=== PATIENT | female | born 1980 | race Caucasian/White ===

== ENCOUNTER 2017-02-25 14:57 | Emergency (ER) | payer SELFPAY ==
[~2017-02-25] VITALS: Ht 152.4 cm; Wt 95.3 kg
[2017-02-25 15:53] LABS: BASOPHILS % 0.3 % (0.0-1.0); EOSINOPHILS % 0.2 % (0.0-6.0); HEMATOCRIT 45.6 % (34.2-44.1); HEMOGLOBIN 15.3 g/dL (12.0-16.0); LYMPHOCYTES # (AUTO) 1.8 (1.0-3.2); LYMPHOCYTES % 26.4 % (18.0-39.1); MEAN CORPUSCULAR HEMOGLOBIN 30.1 pg (28-32); MEAN CORPUSCULAR HGB CONC 33.6 g/dL (31-35); MEAN CORPUSCULAR VOLUME 89.6 fL (81-99); MONOCYTES # (AUTO) 0.3 (0.2-0.8); MONOCYTES % 4.4 % (4.4-11.3); NEUTROPHILS # (AUTO) 4.6 (2.1-6.9); NEUTROPHILS % 68.2 % (38.7-80.0); PLATELET COUNT 218 x10e3/uL (140-360); RED BLOOD COUNT 5.09 x10e6/uL (3.6-5.1)
[2017-02-25] MEDS: MORPHINE SULFATE 5 MG/ML VIAL IV ONE ×2 (16:03→17:37)
[2017-02-25] MEDS: ONDANSETRON HCL INJ 2 MG/ML VIAL IV STA (16:03)
[2017-02-25] MEDS ORDERED: MORPHINE SULFATE 5 MG/ML VIAL ONE (16:07)
[2017-02-25 16:13] LABS: ALANINE AMINOTRANSFERASE 14 IU/L (0-55); ALBUMIN 4.4 g/dL (3.5-5.0); ALKALINE PHOSPHATASE 65 IU/L (40-150); BLOOD UREA NITROGEN 9 mg/dL (7-26); BUN/CREATININE RATIO 11 (6-25); CARBON DIOXIDE 21 mmol/L (22-29); CHLORIDE 104 mmol/L (98-107); CREATININE, SERUM 0.84 mg/dL (0.57-1.11); EST GLOMERULAR FILTRATION RATE > 60 ML/MIN (60-); GLUCOSE 113 mg/dL (74-118); LIPASE 15 U/L (8-78); SODIUM 139 mmol/L (136-145)
[2017-02-25] MEDS: SODIUM CHLORIDE 0.9% 1000ML 1,000 ML IV STA (16:14)
[2017-02-25] MEDS: MORPHINE SULFATE 4 MG/ML SYR IV STA (16:15)
[2017-02-25 16:16] LABS: INFLUENZAE A&B ANTIGEN (RAPID) NEGATIVE (NEGATIVE)
[2017-02-25 16:36] LABS: STREPTOCOCCUS GRP A ANTIGEN NEGATIVE (NEGATIVE)
[2017-02-25 17:24] LABS: BILIRUBIN,URINE NEGATIVE (NEGATIVE); KETONES,URINE 3+ (NEGATIVE); LEUKOCYTE ESTERASE ,URINE TRACE (NEGATIVE); NITRITE,URINE NEGATIVE (NEGATIVE); URINE UROBILINOGEN 0.2 mg/dL (0.2 - 1)
[2017-02-25 17:25] LABS: CLARITY,URINE HAZY (CLEAR); COLOR,URINE YELLOW (YELLOW); PROTEIN,URINE DIPSTICK TRACE (NEGATIVE)
[2017-02-25 17:34] LABS: BACTERIA,URINE MODERATE /HPF; EPITHELIAL CELLS,URINE MODERATE /LPF; RBC,URINE 21-50 /HPF (0-5)
[2017-02-25] MEDS: ONDANSETRON HCL INJ 2 MG/ML VIAL IV ONE (17:37)
[2017-02-25] MEDS ORDERED: ONDANSETRON HCL INJ 2 MG/ML VIAL ONE (17:40)
--- NOTE | 2017-02-25 17:44 | Diagnostic Imaging Report ---
EXAM: CT Abdomen and Pelvis WITHOUT contrast INDICATION: \S\STONE PROTOCOL \[id number] \S\1650 \S\Y COMPARISON: None. TECHNIQUE: Abdomen and pelvis were scanned utilizing a multidetector helical scanner from the lung base to the pubic symphysis without administration of IV contrast. Absence of intravenous contrast decreases sensitivity for detection of focal lesions and vascular pathology. Coronal and sagittal reformations were obtained. Routine protocol was performed. IV CONTRAST: None ORAL CONTRAST: Water COMPLICATIONS: None RADIATION DOSE: Total DLP: 815.67 mGy*cm Estimated effective dose: (DLP x 0.015 x size factor) mSv CTDIvol has been reviewed. It is below the limits set by the Radiation Protocol Committee (RPC). FINDINGS: LINES and TUBES: None. LOWER THORAX: Unremarkable HEPATOBILIARY: Unenhanced liver is unremarkable. No biliary ductal dilation. GALLBLADDER: No radio-opaque stones or sludge. No wall thickening. SPLEEN: No splenomegaly. PANCREAS: No focal masses or ductal dilatation. ADRENALS: No adrenal nodules KIDNEYS/URETERS: No hydronephrosis. No cystic or solid mass lesions. No stones. GI TRACT: No abnormal distention, wall thickening, or evidence of bowel obstruction. Appendix is normal. PELVIC ORGANS/BLADDER: Unremarkable. LYMPH NODES: No lymphadenopathy. VESSELS: Unremarkable. PERITONEUM / RETROPERITONEUM: No free air or fluid. BONES: Unremarkable. L5 vertebral body hemangioma. Straightening of lumbar spine lordosis. SOFT TISSUES: Unremarkable. IMPRESSION: No nephrolithiasis or evidence of obstructive urolithiasis. Signed by: Dr. Ramesh Maciel MD on 02/25/2017 5:41 PM
[2017-02-25] MEDS ORDERED: CEFTRIAXONE SOD 1 GM VIAL ONE (17:56)
[2017-02-25] MEDS: CEFTRIAXONE SOD 1 GM VIAL IV ONE (17:56)
== END 2017-02-25 18:39 | disposition home or self-care (01) ==
LOC: ER 14:57
DX: R10.32 Left lower quadrant pain (principal); N39.0 Urinary tract infection, site not specified; N12 Tubulo-interstitial nephritis, not specified as acute or chronic
CPT/HCPCS: 36415; 74176; 80053; 81001; 83518; 83690; 84702; 85025; 87070; 87086; 87400; 99284; J0696; J2270; J2405; J7030

== ENCOUNTER 2018-01-29 14:02 | Emergency (ER) | payer BC ==
[~2018-01-29] VITALS: Ht 152.4 cm; Wt 95.3 kg
--- OUTSIDE RECORDS SUMMARY | 2018-01-29 14:05 | XMS REPORT ---
Author Author [facility] Address Unknown Phone Unavailable Care Team Providers Care Director Systems Name Role Phone Mariah ROSE Unavailable Unavailable Problems This patient has no known problems. Allergies, Adverse Reactions, Alerts This patient has no known allergies or adverse reactions. Medications This patient has no known medications. Results Test Description Test Time Test Comments Text Results Atomic Results Result Comments CT ABDOMEN/PELVIS WO [place] [address] Patient Name: MIGUELINA BECKHAM MR #: [id number] : 1980 Age/Sex: 36/F Req #: [id number] Adm Physician: Ordered by: TACOS JACOBS CHILD NUTRITION ASSISTANT Report #: [id number] Location: ER Room/Bed: Procedure: [id number] CT/CT ABDOMEN/PELVIS WO Exam Date: 02/25/17 Exam Time: 1650 REPORT STATUS: Signed EXAM: CT Abdomen and Pelvis WITHOUT contrast INDICATION: COMPARISON: None. TECHNIQUE: Abdomen and pelvis were scanned utilizing a multidetector helical scanner from the lung base to the pubic symphysis without administration of IV contrast. Absence of intravenous contrast decreases sensitivity for detection of focal lesions and vascular pathology. Coronal and sagittal reformations were obtained. Routine protocol was performed. IV CONTRAST: None ORAL CONTRAST: Water COMPLICATIONS: None RADIATION DOSE: Total DLP: 815.67 mGy*cm Estimated effective dose: (DLP x 0.015 x size factor) mSv CTDIvol has been reviewed. It is below the limits set by the Radiation Protocol Committee (RPC). FINDINGS: LINES and TUBES: None. LOWER THORAX: Unremarkable HEPATOBILIARY: Unenhanced liver is unremarkable. No biliary ductal dilation. GALLBLADDER: No radio-opaque stones or sludge. No wall thickening. SPLEEN: No splenomegaly. PANCREAS: No focal masses or ductal dilatation. ADRENALS: No adrenal nodules KIDNEYS/URETERS: No hydronephrosis. No cystic or solid mass lesions. No stones. GI TRACT: No abnormal distention, wall thickening, or evidence of bowel obstruction. Appendix is normal. PELVIC ORGANS/BLADDER: Unremarkable. LYMPH NODES: No lymphadenopathy. VESSELS: Unremarkable. PERITONEUM / RETROPERITONEUM: No free air or fluid. BONES: Unremarkable. L5 vertebral body hemangioma. Straightening of lumbar spine lordosis. SOFT TISSUES: Unremarkable. IMPRESSION: No nephrolithiasis or evidence of obstructive urolithiasis. Signed by: Dr. Ramesh Mandujano MD on 02/25/2017 5:41 PM Dictated By: RAMESH MANDUJANO MD 39 Transcribed By: CHAYO on 02/25/171740 COPY TO: TACOS JACOBS NP
[2018-01-29] MEDS ORDERED: MORPHINE SULFATE INJ 4 MG/ML INJ IV STA (14:47)
[2018-01-29] MEDS ORDERED: SODIUM CHLORIDE 0.9% 1000ML 1,000 ML IV STA (14:47)
[2018-01-29] MEDS ORDERED: PANTOPRAZOLE 40 MG 10ML VIAL IV STA (14:47)
[2018-01-29] MEDS ORDERED: ONDANSETRON HCL INJ 2 MG/ML VIAL IV STA (14:47)
[2018-01-29 15:19] LABS: BASOPHILS % 0.3 % (0.0-1.0); EOSINOPHILS # (AUTO) 0.1 (0.0-0.4); EOSINOPHILS % 0.8 % (0.0-6.0); HEMATOCRIT 42.2 % (34.2-44.1); LYMPHOCYTES # (AUTO) 2.3 (1.0-3.2); LYMPHOCYTES % 16.8 % (18.0-39.1); MEAN CORPUSCULAR HEMOGLOBIN 30.3 pg (28-32); MEAN CORPUSCULAR HGB CONC 33.2 g/dL (31-35); MEAN CORPUSCULAR VOLUME 91.3 fL (81-99); MONOCYTES # (AUTO) 0.3 (0.2-0.8); MONOCYTES % 2.5 % (4.4-11.3); NEUTROPHILS # (AUTO) 10.8 (2.1-6.9); NEUTROPHILS % 79.2 % (38.7-80.0); PLATELET COUNT 274 x10e3/uL (140-360); RED BLOOD COUNT 4.62 x10e6/uL (3.6-5.1); RED CELL DISTRIBUTION WIDTH 13.1 % (11.7-14.4)
[2018-01-29 15:25] LABS: INR 0.81
[2018-01-29 15:26] LABS: PARTIAL THROMBOPLASTIN TIME 28.6 seconds (23.8-35.5)
[2018-01-29 15:40] LABS: BILIRUBIN,URINE NEGATIVE (NEGATIVE); CLARITY,URINE SL CLOUDY (CLEAR); COLOR,URINE YELLOW (YELLOW); KETONES,URINE 1+ (NEGATIVE); LEUKOCYTE ESTERASE ,URINE NEGATIVE (NEGATIVE); NITRITE,URINE NEGATIVE (NEGATIVE); PROTEIN,URINE DIPSTICK TRACE (NEGATIVE); URINE UROBILINOGEN 0.2 mg/dL (0.2 - 1)
[2018-01-29 15:41] LABS: PREGNANCY TEST, URINE NEGATIVE (NEGATIVE)
[2018-01-29 15:50] LABS: ALANINE AMINOTRANSFERASE 19 IU/L (0-55); ALBUMIN 4.3 g/dL (3.5-5.0); ALBUMIN/GLOBULIN RATIO 1.2 (0.8-2.0); ALKALINE PHOSPHATASE 61 IU/L (40-150); AMYLASE 35 U/L (25-125); ANION GAP 16.8 mmol/L (8-16); BLOOD UREA NITROGEN 9 mg/dL (7-26); BUN/CREATININE RATIO 12 (6-25); CALCIUM 9.5 mg/dL (8.4-10.2); CARBON DIOXIDE 21 mmol/L (22-29); CHLORIDE 103 mmol/L (98-107); CREATINE KINASE 190 IU/L (29-168); CREATININE, SERUM 0.76 mg/dL (0.57-1.11); EST GLOMERULAR FILTRATION RATE > 60 ML/MIN (60-); GLUCOSE 101 mg/dL (74-118); LIPASE 12 U/L (8-78); MAGNESIUM 1.9 MG/DL (1.3-2.1); POTASSIUM 3.8 mmol/L (3.5-5.1); SODIUM 137 mmol/L (136-145)
[2018-01-29 16:13] LABS: EPITHELIAL CELLS,URINE MANY /LPF
[2018-01-29 16:14] LABS: RBC,URINE >50 /HPF (0-5)
[2018-01-29 16:15] LABS: AMORPHOUS SEDIMENT,URINE MODERATE (FEW); BACTERIA,URINE FEW /HPF
--- NOTE | 2018-01-29 17:42 | Diagnostic Imaging Report ---
EXAM: CT Abdomen and Pelvis WITH contrast INDICATION: ^ORTEGA/RUQ PAIN, N/V COMPARISON: CT dated 02/25/2017 TECHNIQUE: Abdomen and pelvis were scanned utilizing a multidetector helical scanner from the lung base to the pubic symphysis after administration of IV contrast. Coronal and sagittal reformations were obtained. Dose modulation, iterative reconstruction, and/or weight based adjustment of the mA/kV was utilized to reduce the radiation dose to as low as reasonably achievable. Routine protocol was performed. Scan was performed when during portal venous phase. IV CONTRAST: 100 mL of Isovue-370 ORAL CONTRAST: Water COMPLICATIONS: None RADIATION DOSE: Total DLP: 896.62 mGy*cm Estimated effective dose: (DLP x 0.015 x size factor) mSv CTDIvol has been reviewed. It is below the limits set by the Radiation Protocol Committee (RPC). FINDINGS: LINES and TUBES: None. LOWER THORAX: Unremarkable. Bibasilar subsegmental atelectasis. HEPATOBILIARY: No focal hepatic lesions. No biliary ductal dilation. GALLBLADDER: No radio-opaque stones or sludge. No wall thickening. SPLEEN: No splenomegaly. PANCREAS: No focal masses or ductal dilatation. ADRENALS: No adrenal nodules KIDNEYS/URETERS: Kidneys enhance symmetrically. No hydronephrosis. No renal mass. 1 cm left renal superior pole hypodensity is probably a cyst. No stones. GI TRACT: No abnormal distention, wall thickening, or evidence of bowel obstruction. Appendix is normal. PELVIC ORGANS/BLADDER: Unremarkable. LYMPH NODES: No lymphadenopathy. VESSELS: Unremarkable. PERITONEUM / RETROPERITONEUM: No free air or fluid. BONES: Unremarkable. L4 vertebral body hemangioma. SOFT TISSUES: Small fat-containing umbilical hernia. Left buttock injection granuloma. IMPRESSION: 1. No acute inflammatory process in the abdomen/pelvis to explain patient's symptoms. Signed by: Dr. Ramesh Maciel MD on 01/29/2018 5:39 PM
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
[2018-01-29] MEDS ORDERED: PROMETHAZINE 12.5MG/ NACL 0.9% 12.5 MG/50 ML BAG IV ONE (18:45)
[2018-01-29] MEDS ORDERED: MORPHINE SULFATE INJ 4 MG/ML INJ IV ONE (18:45)
[2018-01-29] MEDS ORDERED: CEFTRIAXONE SOD 1 GM VIAL IV ONE (18:45)
[2018-01-29 20:44] VITALS: BP 145/62
== END 2018-01-29 21:05 | disposition home or self-care (01) ==
LOC: ER 14:02
DX: R10.11 Right upper quadrant pain (principal); R10.13 Epigastric pain; R11.2 Nausea with vomiting, unspecified; K29.00 Acute gastritis without bleeding; N30.91 Cystitis, unspecified with hematuria
CPT/HCPCS: 36415; 71045; 74177; 80053; 81001; 81025; 82150; 82550; 82553; 83690; 83735; 84484; 85025; 85610; 85730; 99284; J0696; J2270; J2405; J2550; J7030

== ENCOUNTER 2019-03-20 13:38 | Emergency (ER) | payer BC ==
[~2019-03-20] VITALS: Ht 152.4 cm; Wt 95.3 kg
[2019-03-20] MEDS ORDERED: TRAMADOL HCL 50 MG TAB PO ONE (14:00)
[2019-03-20] MEDS ORDERED: CYCLOBENZAPRINE HCL 10 MG TAB PO ONE (14:00)
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
== END 2019-03-20 15:28 | disposition home or self-care (01) ==
LOC: ER 13:38
DX: S00.83XA Contusion of other part of head, initial encounter (principal); S16.1XXA Strain of muscle, fascia and tendon at neck level, initial encounter; V43.52XA Car driver injured in collision with other type car in traffic accident, initial encounter; Y92.488 Other paved roadways as the place of occurrence of the external cause
CPT/HCPCS: 70450; 72125; 99283

== ENCOUNTER 2019-07-07 10:15 | Emergency (ER) | payer BC ==
[~2019-07-07] VITALS: Ht 149.9 cm; Wt 101.3 kg
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
[2019-07-07] MEDS ORDERED: ONDANSETRON HCL 4 MG ORAL DISINTEGRATING TAB PO STA (10:49)
[2019-07-07] MEDS ORDERED: ONDANSETRON HCL 4 MG ORAL DISINTEGRATING TAB ONE (10:55)
[2019-07-07] MEDS ORDERED: ONDANSETRON ODT8 MG PO (10:58)
[2019-07-07] MEDS ORDERED: IMODIUM A-D2 M2 PO (10:58)
[2019-07-07] MEDS ORDERED: ZESTRIL20 MG PO (11:04)
--- NOTE | 2019-07-07 11:16 | Emergency Department Note ---
History of Present Illnes History of Present Illness Chief Complaint: vomiting History of Present Illness This is a 38 year old female. was doing well until 1 day ago then menstrual cramps with associated diarrhea then pt vomited up specks of blood x 3 times. no other complaints. 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 pcp wanted to start pt on med put did not Historian: Patient Arrival Mode: Car History limited by: condition of the patient (normal) Onset (how long ago): day(s) (1) Location: n/a Quality: n/a Radiation: non-radiation Severity: moderate Onset quality: gradual Duration (how long): day(s) (1) Timing of current episode: intermittent Progression: partially resolved Chronicity: new Context: recent illness, recent surgery, recent immobilization, recent travel, trauma/injury, new medications, hx of DVT/PE, non-compliance w/ medications Relieving factors: none Exacerbating factors: none Associated symptoms: nausea/vomiting, other Treatments prior to arrival: none Past Medical/Family History Physician Review I have reviewed the patient's past medical and family history. Any updates have been documented here. Past Medical History Recent Fever: No Clinical Suspicion of Infectio: No New/Unexplained Change in Ment: No Past Medical History: Hypertension Past Surgical History: Tubal Ligation Other Surgery: TUBAL Social History Smoking Cessation: Never Smoker Counseling Performed: No Alcohol Use: Occasional Any Illegal Drug Use: No TB Exposure/Symptoms: No Physically hurt or threatened: No Family History Family history of heart diseas: Yes Other Last Tetanus: UNKNOWN Any Pre-Existing Lines (PICC,: No Is patient up to date on immun: Yes Last Flu: none Last Pneumovax: none Review of Systems Review of Systems Constitutional: no symptoms EENTM: no symptoms Cardiovascular: no symptoms Respiratory: no symptoms Gastrointestinal: as per HPI, abdominal pain, diarrhea, nausea, vomiting Genitourinary: no symptoms Musculoskeletal: no symptoms Neurological: no symptoms Psychological: no symptoms Endocrine: no symptoms Hematological/Lymphatic: no symptoms Review of other systems All other systems reviewed and negative. Physical Exam Related Data Allergies: Coded Allergies: No Known Allergies (Unverified , 02/25/17) Triage Vital Signs Vital Signs Date Time Temp Pulse Resp B/P (MAP) Pulse Ox O2 Delivery O2 Flow Rate FiO2 07/07/19 10:23 98.4 93 18 179/108 99 Vital signs reviewed: Yes Physical Exam CONSTITUTIONAL Constitutional: well-developed, well-nourished HENT HENT: normocephalic, atraumatic, oropharynx clear/moist, nose normal HENT L/R: left ext ear normal, right ext ear normal EYES Eyes: PERRL, conjunctivae normal NECK Neck: ROM normal PULMONARY Pulmonary: effort normal, breath sounds normal CARDIOVASCULAR Cardiovascular: regular rhythm, heart sounds normal, capillary refill normal, normal rate GASTROINTESTINAL Abdominal: soft, nontender, bowel sounds normal GENITOURINARY Genitourinary: exam deferred SKIN Skin: warm, dry MUSCULOSKELETAL Musculoskeletal: ROM normal NEUROLOGICAL Neurological: alert, oriented x 3, no gross motor or sensory deficits PSYCHOLOGICAL Psychological: mood/affect normal, judgement normal Critical Care Time Subsequent provider I assumed direction of critical care for this patient from another provider of my specialty. Assessment & Plan Assessment & Plan Final Impression: (1) HYPERTENSIVE URGENCY (2) VOMITING, UNSPECIFIED (3) DIARRHEA, UNSPECIFIED (4) EXCESSIVE AND FREQUENT MENSTRUATION WITH REGULAR CYCLE Assessment & Plan take rxed zofran , imodium, lisinopril Depart Disposition: HOME, SELF-CARE Last Vital Signs Date Time Temp Pulse Resp B/P (MAP) Pulse Ox O2 Delivery O2 Flow Rate FiO2 07/07/19 10:23 98.4 93 18 179/108 99 Home Meds Active Scripts Lisinopril* (ZESTRIL*) 20 Mg Tablet, 20 MG PO DAILY for 30 Days, #30 TAB 1 Refill Prov:REID FRANCIS 07/07/19 Loperamide HCl (Imodium A-D) 2 Mg Capsule, 2 MG PO Q4HR PRN for DIARRHEA, #24 TAB Prov:REID FRANCIS 07/07/19 Ondansetron (ONDANSETRON ODT) 8 Mg Tab.rapdis, 4 MG PO Q4HR PRN for NAUSEA AND VOMITING for 5 Days, #30 TAB Prov:REID FRANCIS 07/07/19 Medications in the ED Ondansetron HCl 4 mg ONCE STAT PO ; Start 07/07/19 at 10:49; Stop 07/07/19 at 10:50 Ondansetron HCl 8 mg STK-MED ONCE .ROUTE ; Start 07/07/19 at 10:55; Stop 07/07/19 at 10:51; Status DC REID FRANCIS Jul 07, 2019 11:16
[2019-07-07 11:17] VITALS: BP 163/77
[2019-07-07] MEDS ORDERED: ONDANSETRON HCL 4 MG ORAL DISINTEGRATING TAB PO ONE (11:30)
== END 2019-07-07 11:15 | disposition home or self-care (01) ==
LOC: FSED 10:15
DX: R10.9 Unspecified abdominal pain (principal); R19.7 Diarrhea, unspecified; R11.2 Nausea with vomiting, unspecified; N92.0 Excessive and frequent menstruation with regular cycle; I10 Essential (primary) hypertension
CPT/HCPCS: 81003; 81025; 99283; Q0162

== ENCOUNTER 2020-08-22 20:18 | Emergency (ER) | payer BC ==
[~2020-08-22] VITALS: Ht 152.4 cm; Wt 100.7 kg
[~2020-08-22 20:18] MED LIST: IMODIUM A-D2 M2 PO; ONDANSETRON ODT8 MG PO; ZESTRIL20 MG PO
[2020-08-22] MEDS ORDERED: HYDROCODONE/APAP 7.5MG-325MG 1 EA TAB PO ONE (21:00)
== END 2020-08-22 22:40 | disposition home or self-care (01) ==
LOC: ER 20:29
DX: S93.402A Sprain of unspecified ligament of left ankle, initial encounter (principal); X50.1XXA Overexertion from prolonged static or awkward postures, initial encounter; Y93.01 Activity, walking, marching and hiking; Y92.008 Other place in unspecified non-institutional (private) residence as the place of occurrence of the external cause; I10 Essential (primary) hypertension
CPT/HCPCS: 99284

== ENCOUNTER 2021-07-12 13:32 | Emergency (ER) | payer BC, OTHER ==
[~2021-07-12] VITALS: Ht 152.4 cm; Wt 97.5 kg
[2021-07-12] MEDS ORDERED: IBUPROFEN 600 MG TAB PO STA (14:31)
[2021-07-12] MEDS ORDERED: IBUPROFEN 600 MG TAB ONE (15:31)
[2021-07-12] MEDS ORDERED: KETOROLAC TROME10 MG PO (15:48)
== END 2021-07-12 15:57 | disposition home or self-care (01) ==
LOC: FSED 14:02
DX: M25.532 Pain in left wrist (principal); S60.212A Contusion of left wrist, initial encounter; W22.09XA Striking against other stationary object, initial encounter; Y92.89 Other specified places as the place of occurrence of the external cause; I10 Essential (primary) hypertension
CPT/HCPCS: 99283